=== PATIENT | male | born 1985 | race Caucasian/White ===

== ENCOUNTER 2016-10-18 21:17 | Emergency (ER) | payer BC, MEDICAID ==
[2016-10-18 21:27] VITALS: BP 137/83; PULSE 108; RESP 18; TEMP 99.9; O2SAT 99
[2016-10-18] MEDS ORDERED: Dexamethasone 4 mg/1 ml ONE (21:37)
--- NOTE | 2016-10-18 21:45 | ED PDOC ---
HPI: CCC, URI, Sore Throat Time Seen by Provider: 10/18/16 21:29 Chief Complaint (Nursing): ENT Problem Chief Complaint (Provider): Throat pain History Per: Patient History/Exam Limitations: no limitations Onset/Duration Of Symptoms: Days (2) Current Symptoms Are (Timing): Still Present Location Of Pain: Throat Additional Complaint(s): Alo Sommer is a 31 y/o male presenting to the ER on 10/18/2016 with complaints of throat pain for two days. Patient states throat pain, which radiates to his ears, is associated with a fever (t-max at 104 degrees). Patient was evaluated for the same symptoms earlier today by his primary doctor and was prescribed Augmentin. Patient admits he feels worse and has not experienced relief after taking the Augmentin, prompting him to seek medical evaluation. Past Medical History Reviewed: Historical Data, Nursing Documentation, Vital Signs Vital Signs: Last Vital Signs Temp 99.9 F H 10/18/16 21:25 Pulse 108 H 10/18/16 21:25 Resp 18 10/18/16 21:25 BP 137/83 10/18/16 21:25 Pulse Ox 99 10/18/16 21:49 - Medical History PMH: No Chronic Diseases - Surgical History Surgical History: Cholecystectomy - Family History Family History: States: Unknown Family Hx - Social History Current smoker - smoking cessation education provided: No Alcohol: None Drugs: Denies - Allergies Allergies/Adverse Reactions: Allergies Allergy/AdvReac Type Severity Reaction Status Date / Time No Known Allergies Allergy Verified 10/18/16 21:24 Review of Systems ROS Statement: Except As Marked, All Systems Reviewed And Found Negative Constitutional: Positive for: Fever ENT: Positive for: Ear Pain, Throat Pain Neurological: Negative for: Weakness, Numbness Physical Exam - Reviewed Nursing Documentation Reviewed: Yes Vital Signs Reviewed: Yes - Physical Exam Appears: Positive for: Non-toxic, No Acute Distress Head Exam: Positive for: ATRAUMATIC, NORMOCEPHALIC Skin: Positive for: Normal Color. Negative for: Rash Eye Exam: Positive for: Normal appearance, EOMI, PERRL ENT: Positive for: Normal ENT Inspection, TM Is/Are (normal bilat ), Tonsillar Exudate, Tonsillar Swelling, Other ((+) mild uvula swelling ) Neck: Positive for: Normal, Painless ROM, Supple Extremity: Positive for: Normal ROM. Negative for: Deformity, Swelling Lymphatic: Positive for: Normal Exam ((+) swelling to lymph nodes ) Neurologic/Psych: Positive for: Alert, Oriented. Negative for: Motor/Sensory Deficits - ECG O2 Sat by Pulse Oximetry: 99 Medical Decision Making Medical Decision Makin:29 Initial Impression- 31 y/o male with throat pain Pt was advised to adhere to his course of Augmentin. Will give decadron clinically for his inflammation. If symptoms are worsened within the next two days, pt was advised to return to ER to r/o peritonsillar abscess. Condition is stable for discharge. Documented by Zora Bass, acting as a scribe for Gale Dennis PA-C All medical record entries made by the Scribe were at my direction and personally dictated by me. I have reviewed the chart and agree that the record accurately reflects my personal performance of the history, physical exam, medical decision making, and the department course for this patient. I have also personally directed, reviewed, and agree with the discharge instructions and disposition. Disposition - Clinical Impression Clinical Impression: Streptococcal sore throat - Patient ED Disposition Is Patient to be Admitted: No Counseled Patient/Family Regarding: Need For Followup - Disposition Disposition: Routine/Home Disposition Time: 14:23 Condition: STABLE Instructions: Strep Throat (ED) Forms: [facility] ED School/Work Excuse
== END 2016-10-18 22:15 | disposition home or self-care (01) ==
LOC: H.ER 21:17
DX: J02.9 Acute pharyngitis, unspecified (principal)
CPT/HCPCS: 96372; 99282; J1100

== ENCOUNTER 2018-06-07 15:28 | Emergency (ER) | payer BC ==
--- NOTE | 2018-06-07 16:00 | ED PDOC ---
HPI: Abdomen Time Seen by Provider: 06/07/18 15:48 Chief Complaint (Nursing): Abdominal Pain Chief Complaint (Provider): Abdominal Pain History Per: Patient History/Exam Limitations: no limitations Onset/Duration Of Symptoms: Days Location Of Pain/Discomfort: LLQ Associated Symptoms: Back Pain Additional Complaint(s): Damon Palmer is a 32 year old male with a past medical history of a gallbladder surgery, who presents to the emergency department complaining on left lower abdominal pain, onset was x5 days ago. He states that the pain started after doing some heavy lifting. Patient further states that he feels a bump in the location of the pain, but that is not new and has been there for a while. He further states that he has pain in his penis when he urinates and when he sits down. When conducting exam, patient reveals that he has pain in lower back as well. PMD: [place] Past Medical History Reviewed: Historical Data, Nursing Documentation, Vital Signs Vital Signs: Last Vital Signs Temp 98.6 F 06/07/18 15:36 Pulse 97 H 06/07/18 15:36 Resp 16 06/07/18 15:36 BP 121/80 06/07/18 15:36 Pulse Ox 100 06/07/18 15:36 - Medical History PMH: No Chronic Diseases - Surgical History Surgical History: Cholecystectomy - Family History Family History: States: Unknown Family Hx - Social History Current smoker - smoking cessation education provided: No Ex-Smoker (has not smoked in the last 12 months): No Alcohol: None - Home Medications Home Medications: Ambulatory Orders Medication Instructions Recorded Cyclobenzaprine [Cyclobenzaprine 10 mg PO TID #15 tab 06/07/18 HCl] Naproxen 500 mg PO BID #20 tab 06/07/18 - Allergies Allergies/Adverse Reactions: Allergies Allergy/AdvReac Type Severity Reaction Status Date / Time No Known Allergies Allergy Verified 06/07/18 15:36 Review of Systems ROS Statement: Except As Marked, All Systems Reviewed And Found Negative Gastrointestinal: Positive for: Abdominal Pain Genitourinary Male: Positive for: Penile Pain (upon urination) Musculoskeletal: Positive for: Back Pain Physical Exam - Reviewed Nursing Documentation Reviewed: Yes Vital Signs Reviewed: Yes - Physical Exam Appears: Positive for: Non-toxic, Uncomfortable (obese appearing ) Head Exam: Positive for: ATRAUMATIC, NORMOCEPHALIC Skin: Positive for: Normal Color, Warm, Dry Eye Exam: Positive for: Normal appearance, EOMI, PERRL Neck: Positive for: Normal, Painless ROM, Supple Cardiovascular/Chest: Positive for: Regular Rate, Rhythm. Negative for: Murmur Respiratory: Positive for: Normal Breath Sounds. Negative for: Respiratory Distress Gastrointestinal/Abdominal: Positive for: Tenderness (LLQ tenderness; no hernia ) Back: Positive for: Normal Inspection, Other (left lower lumbar paraspinal tenderness ). Negative for: L CVA Tenderness, R CVA Tenderness Extremity: Positive for: Normal ROM. Negative for: Pedal Edema, Deformity, Other (straight leg test ) Neurologic/Psych: Positive for: Alert, Oriented. Negative for: Motor/Sensory Deficits - Laboratory Results Result Diagrams: 06/07/18 16:26 06/07/18 16:26 - ECG O2 Sat by Pulse Oximetry: 100 (RA) Pulse Ox Interpretation: Normal - Progress Re-evaluation Time: 18:31 Condition: Re-examined, Improved Medical Decision Making Medical Decision Making: Time: 1557 Impression: Left lower back pain and left lower quadrant pain --Differential diagnosis includes but is not limited acute diverticulitis, nephrolithiasis, inguinal hernia complication, and musculoskeletal pain Plan: CT abdomen and Pelvis IV contrast only BMP Urine drug screen ED urine dipstick CBC with differential Toradol 30 mg IVP Saline Lock Time: 1750 FINDINGS: LOWER THORAX: Unremarkable. LIVER: Unremarkable. No gross lesion or ductal dilatation. GALLBLADDER AND BILE DUCTS: Prior cholecystectomy. PANCREAS: Unremarkable. No gross lesion or ductal dilatation. SPLEEN: Unremarkable. ADRENALS: Unremarkable. No mass. KIDNEYS AND URETERS: Punctate intrarenal calculus midpole right kidney with none on the left. No obstructive uropathy bilaterally. Small lucency is indeterminate at the midpole left kidney due to small size of 6.5 mm. Bilateral renal parenchyma otherwise unremarkable. VASCULATURE: Unremarkable. No aortic aneurysm. No aortic atherosclerotic calcification or mural plaque present. BOWEL: Right left colonic diverticula. No acute diverticulitis pattern evident. No obstruction. No gross mural thickening. APPENDIX: No CT evidence of appendicitis. PERITONEUM: Unremarkable. No free fluid. No free air. LYMPH NODES: Unremarkable. No enlarged lymph nodes. BLADDER: Unremarkable. REPRODUCTIVE: Unremarkable. BONES: No acute fracture. OTHER FINDINGS: None. IMPRESSION: No definite acute abdominal or pelvic findings. Trace left colonic diverticular changes without diverticulitis. Punctate nonobstructing intrarenal calculus right kidney. Small lucency too small to characterize left kidney. Scribe Attestation: Documented by Erik Parrish, acting as a scribe for Hai Dorantes MD. Provider Scribe Attestation: All medical record entries made by the Scribe were at my direction and personally dictated by me. I have reviewed the chart and agree that the record accurately reflects my personal performance of the history, physical exam, medical decision making, and the department course for this patient. I have also personally directed, reviewed, and agree with the discharge instructions and disposition. Disposition - Clinical Impression Clinical Impression: Abdominal pain, Back pain - Patient ED Disposition Is Patient to be Admitted: No Doctor Will See Patient In The: Office Counseled Patient/Family Regarding: Studies Performed, Diagnosis, Need For Followup - Disposition Referrals: [facility] [Outside] Disposition: Routine/Home Disposition Time: 18:32 Condition: IMPROVED Additional Instructions: DAMON PALMER, thank you for letting us take care of you today. Your provider was Hai Dorantes MD and you were treated for ABD PAIN. The emergency medical care you received today was directed at your acute symptoms. If you were prescribed any medication, please fill it and take as directed. It may take several days for your symptoms to resolve. Return to the Emergency Department if your symptoms worsen, do not improve, or if you have any other problems. Please contact your doctor or call one of the physicians/clinics you have been referred to that are listed on the Patient Visit Information form that is included in your discharge packet. Bring any paperwork you were given at d ischarge with you along with any medications you are taking to your follow up visit. Our treatment cannot replace ongoing medical care by a primary care provider outside of the emergency department. Thank you for allowing the [facility] team to be part of your care today. If you had an X-Ray or CT scan: A Radiologist will review the ED reading if any change in treatment is needed we will contact you. If you had a blood, urine, or wound culture: It will take several days for the results, if any change in treatment is needed we will contact you. If you had an STI test: It will take 48 hours for the results. Please call after 1 week if you have not heard back. Prescriptions: Cyclobenzaprine [Cyclobenzaprine HCl] 10 mg PO TID #15 tab Naproxen 500 mg PO BID #20 tab Instructions: Flank Pain (DC)
[2018-06-07 16:43] LABS: BASO % 0.6 % (0.0-2.0); EOS % 0.4 % (0.0-4.0); HEMOGLOBIN 15.6 g/dL (12.0-18.0); LYMPH # 1.4 K/uL (1.0-4.3); LYMPH % 32.7 % (20.0-40.0); MEAN CELL VOLUME 90.3 fl (80.0-94.0); MEAN CORPUSCULAR HEMOGLOBIN 30.4 pg (27.0-31.0); MEAN CORPUSCULAR HGB CONC 33.7 g/dL (33.0-37.0); MEAN PLATELET VOLUME 8.4 fl (7.2-11.7); MONO # 0.4 K/uL (0.0-0.8); MONO % 9.4 % (0.0-10.0); NEUT # 2.4 K/uL (1.8-7.0); NEUT % 56.9 % (50.0-75.0); NRBC % 0.2 % (0.0-0.0); RBC 5.14 Mil/uL (4.40-5.90); RED CELL DISTRIBUTION WIDTH 14.4 % (11.5-14.5); WHITE BLOOD COUNT 4.3 K/uL (4.8-10.8)
[2018-06-07 16:50] LABS: BLOOD UREA NITROGEN 14 mg/dl (9-20); CALCIUM 9.6 mg/dL (8.4-10.2); GFR NON-AFRICAN AMERICAN > 60
[2018-06-07] MEDS ORDERED: Iohexol 300 100 ML IJ ONE (17:00)
[2018-06-07] MEDS ORDERED: Sodium Chloride 0.9% 50 ML IV ONE (17:00)
--- NOTE | 2018-06-07 17:46 | CT ---
Date of service: 06/07/2018 PROCEDURE: CT Abdomen and Pelvis with contrast HISTORY: LLQ pain left flank pain COMPARISON: None. TECHNIQUE: Following the intravenous administration of iodinated contrast material, a CT examination of the abdomen and pelvis was performed from the domes of the diaphragms to the symphysis pubis with reformatted datasets provided in axial, sagittal and coronal planes. Oral contrast was not administered as per referring physician request. Contrast dose: Omnipaque 300, 100 cc. Radiation dose: Total exam DLP = 979.89 mGy-cm. This CT exam was performed using one or more of the following dose reduction techniques: Automated exposure control, adjustment of the mA and/or kV according to patient size, and/or use of iterative reconstruction technique. FINDINGS: LOWER THORAX: Unremarkable. LIVER: Unremarkable. No gross lesion or ductal dilatation. GALLBLADDER AND BILE DUCTS: Prior cholecystectomy. PANCREAS: Unremarkable. No gross lesion or ductal dilatation. SPLEEN: Unremarkable. ADRENALS: Unremarkable. No mass. KIDNEYS AND URETERS: Punctate intrarenal calculus midpole right kidney with none on the left. No obstructive uropathy bilaterally. Small lucency is indeterminate at the midpole left kidney due to small size of 6.5 mm. Bilateral renal parenchyma otherwise unremarkable. VASCULATURE: Unremarkable. No aortic aneurysm. No aortic atherosclerotic calcification or mural plaque present. BOWEL: Right left colonic diverticula. No acute diverticulitis pattern evident. No obstruction. No gross mural thickening. APPENDIX: No CT evidence of appendicitis. PERITONEUM: Unremarkable. No free fluid. No free air. LYMPH NODES: Unremarkable. No enlarged lymph nodes. BLADDER: Unremarkable. REPRODUCTIVE: Unremarkable. BONES: No acute fracture. OTHER FINDINGS: None. IMPRESSION: No definite acute abdominal or pelvic findings. Trace left colonic diverticular changes without diverticulitis. Punctate nonobstructing intrarenal calculus right kidney. Small lucency too small to characterize left kidney.
[2018-06-07 18:43] VITALS: BP 130/74; PULSE 78; RESP 18; TEMP 98.2
[2018-06-07 18:44] VITALS: O2SAT 100
[2018-06-07 19:10] LABS: BARBITURATES, UR NEGATIVE (NEGATIVE); BENZODIAZEPINES, UR NEGATIVE (NEGATIVE); OPIATES, UR NEGATIVE (NEGATIVE); PHENCYCLIDINE, UR NEGATIVE (NEGATIVE)
== END 2018-06-07 18:42 | disposition home or self-care (01) ==
LOC: H.ER 15:28
DX: R10.32 Left lower quadrant pain (principal); M54.9 Dorsalgia, unspecified; N20.0 Calculus of kidney
CPT/HCPCS: 74177; 80048; 85025; 96374; 99284; G0480; J1885; Q9967